=== PATIENT | female | born 1960 | race Caucasian/White ===

== ENCOUNTER 2018-06-12 14:18 | Emergency (ER) | payer OTHER ==
[2018-06-12 14:25] VITALS: BP 131/78; PULSE 66; TEMP 97.8; BMI 30.9
[2018-06-12] MEDS ORDERED: IBUPROFEN 600 MG TABLET (FP) PO ONE ×2 (14:26)
--- NOTE | 2018-06-12 14:42 | PDOC ---
History of Present Illness - General History Source: Patient Exam Limitations: No Limitations - History of Present Illness Initial Comments: 06/12/18 14:43 The patient is a 57 year old female, with a significant past medical history of HTN, who presents to the ED today complaining of RT thumb laceration, that she obtained 30 minutes prior to arriving.The patient reports she was standing on a folding chair when she fell backwards, and her first RT phalange and thumb were caught in between the chair. The patient denies any head strike/injury or loss of consciousness. Denies any neck pain. Denies any nausea or vomiting. Denies any numbness, tingling or loss of sensation. The patient denies chest pain, shortness of breath, headache and dizziness. Denies fever, chills, nausea, vomit, diarrhea and constipation. Denies dysuria, frequency, urgency and hematuria. Allergies: codeine, [penicillin] <Velasquez Sánchez - Last Filed: 06/12/18 14:42> - General History Source: Patient Exam Limitations: No Limitations <Serenity Rowley - Last Filed: 06/12/18 15:10> - General Chief Complaint: Pain Stated Complaint: R THUMB INJURY Time Seen by Provider: 06/12/18 14:25 Past History <Velasquez Sánchez - Last Filed: 06/12/18 14:42> - Past Medical History Anemia: No Asthma: No Cancer: No Cardiac Disorders: No CVA: No COPD: No CHF: No Dementia: No Diabetes: No GI Disorders: Yes (GERD, rectal bleeding) Disorders: No HTN: Yes Hypercholesterolemia: No Liver Disease: No Seizures: No Thyroid Disease: No - Surgical History Abdominal Surgery: No Appendectomy: No Cardiac Surgery: No Cholecystectomy: No Lung Surgery: No Neurologic Surgery: No Orthopedic Surgery: Yes (RIGHT KNEE ARTHROSCOPIC SURGERY) - Suicide/Smoking/Psychosocial Hx Smoking History: Never smoked Have you smoked in the past 12 months: No Number of Cigarettes Smoked Daily: 0 If you are a former smoker, when did you quit?: 18 YEARS AGO Information on smoking cessation initiated: No Hx Alcohol Use: Yes (Socially) Drug/Substance Use Hx: No Substance Use Type: Alcohol Hx Substance Use Treatment: No <Serenity Rowley - Last Filed: 06/12/18 15:10> - Past Medical History Allergies/Adverse Reactions: Allergies Allergy/AdvReac Type Severity Reaction Status Date / Time codeine [Codeine] Allergy Itching Verified 06/12/18 14:20 pencillin Allergy Severe Rash Uncoded 06/12/18 14:21 Home Medications: Ambulatory Orders Omeprazole Magnesium [Prilosec (OTC)] 20 mg PO DAILY 10/14/12 Cholecalciferol (Vitamin D3) [Vitamin D3] 1,000 unit PO DAILY capsule 05/31/15 Review of Systems - Review of Systems Comments:: 06/12/18 14:43 GENERAL/CONSTITUTIONAL: No fever or chills. No weakness. HEAD, EYES, EARS, NOSE AND THROAT: No change in vision. No ear pain or discharge. No sore throat. CARDIOVASCULAR: No chest pain or shortness of breath. RESPIRATORY: No cough, wheezing, or hemoptysis. GASTROINTESTINAL: No nausea, vomiting, diarrhea or constipation. GENITOURINARY: No dysuria, frequency, or change in urination. MUSCULOSKELETAL: +RT thumb laceration +RT first phalange pain. No joint or muscle swelling or pain. No neck or back pain. SKIN: No rash NEUROLOGIC: No headache, vertigo, loss of consciousness, or change in strength/ sensation. ENDOCRINE: No increased thirst. No abnormal weight change. HEMATOLOGIC/LYMPHATIC: No anemia, easy bleeding, or history of blood clots. ALLERGIC/IMMUNOLOGIC: No hives or skin allergy. <Velasquez Sánchez - Last Filed: 06/12/18 14:42> *Physical Exam - Vital Signs Last Vital Signs Temp Pulse Resp BP Pulse Ox 97.8 F 66 18 131/78 98 06/12/18 14:22 06/12/18 14:22 06/12/18 14:22 06/12/18 14:22 06/12/18 14:22 <Velasquez Sánchez - Last Filed: 06/12/18 14:42> - Vital Signs Last Vital Signs Temp Pulse Resp BP Pulse Ox 97.8 F 66 18 131/78 98 06/12/18 14:22 06/12/18 14:22 06/12/18 14:22 06/12/18 14:22 06/12/18 14:22 - Physical Exam Comments: 06/12/18 14:41 Alert no acute distress lungs are clear bilaterally is regular without any murmurs rubs or gallops right upper extremity exam shows thumb with tenderness at the IP joint pain on flexion no obvious deformity there is a subungual hematoma noted distally the patient is neurovascularly intact elbow and shoulder are nontender with full range of motion head atraumatic no midline spinal tenderness. <Serenity Rowley - Last Filed: 06/12/18 15:10> Moderate Sedation - Procedure Monitoring Vital Signs: Procedure Monitoring Vital Signs Temperature 97.8 F 06/12/18 14:22 Pulse Rate 66 06/12/18 14:22 Respiratory Rate 18 06/12/18 14:22 Blood Pressure 131/78 06/12/18 14:22 O2 Sat by Pulse Oximetry (%) 98 06/12/18 14:22 <Velasquez Sánchez - Last Filed: 06/12/18 14:42> - Procedure Monitoring Vital Signs: Procedure Monitoring Vital Signs Temperature 97.8 F 06/12/18 14:22 Pulse Rate 66 06/12/18 14:22 Respiratory Rate 18 06/12/18 14:22 Blood Pressure 131/78 06/12/18 14:22 O2 Sat by Pulse Oximetry (%) 98 06/12/18 14:22 <Serenity Rowley - Last Filed: 06/12/18 15:10> ED Treatment Course - Medications Given in the ED: ED Medications Discontinued Medications Generic Name Dose Route Start Last Admin Trade Name Freq PRN Reason Stop Dose Admin Ibuprofen 600 mg 06/12/18 14:26 06/12/18 14:32 Motrin - PO 06/12/18 14:27 600 mg ONCE ONE Administration <Velasquez áSnchez - Last Filed: 06/12/18 14:42> - RADIOLOGY Radiology Studies Ordered: Category Date Time Status FINGER(S) RIGHT [RAD] Stat Radiology 06/12/18 14:26 Ordered - Medications Given in the ED: ED Medications Discontinued Medications Generic Name Dose Route Start Last Admin Trade Name Freq PRN Reason Stop Dose Admin Ibuprofen 600 mg 06/12/18 14:26 06/12/18 14:32 Motrin - PO 06/12/18 14:27 600 mg ONCE ONE Administration <Serenity Rowley - Last Filed: 06/12/18 15:10> Medical Decision Making - Medical Decision Making 06/12/18 14:40 57-year-old female history of hypertension here status post fall from a chair. Happened 30 minutes prior to arrival complaining of right thumb pain. States her thumb got compression a falling chair that she was standing on pain is moderate did not take anything for it prior to arrival pain with moving her thumb no elbow or shoulder injury no LOC no new neck or back pain On exam the thumb is with pain at the IP joint there is a subungual hematoma noted Differential fracture versus contusion plan x-ray of the thumb pain control likely DC home with hand follow-up 06/12/18 15:07 xray with questionable avulsion fx proximal point of distal phalynx. placed in splint. given fu with dr parekh. <Serenity Rowley - Last Filed: 06/12/18 15:10> *DC/Admit/Observation/Transfer - Attestations Scribe Attestion: 06/12/18 14:44 Documentation prepared by Velasquez Sánchez, acting as mobile paramedical examiner for Serenity Rowley MD, MD <Velasquez Sánchez - Last Filed: 06/12/18 14:42> <Serenity Rowley - Last Filed: 06/12/18 15:10> Diagnosis at time of Disposition: Thumb injury, Subungual hematoma - Discharge Dispostion Disposition: HOME Condition at time of disposition: Improved - Referrals Referrals: Juan Parekh MD [Staff Physician] - - Patient Instructions Printed Discharge Instructions: Finger Fracture Additional Instructions: you can follow up with a hand specialist see referral information for dr. parekh. call to schedule. within one week. wear splint to help healing and provide comfort. you can take naproxen 500 mg up to twice daily for pain. you can also take tylenol 500 mg every 6 hrs as needed for pain. elevate to reduce swelling. return for any problems or concerns.
== END 2018-06-12 15:21 | disposition home or self-care (01) ==
LOC: FER 14:18
PROC: 2W3GX1Z Immobilization of Right Thumb using Splint (ICD-10-PCS; principal; 2018-06-12)
DX: S61.011A Laceration without foreign body of right thumb without damage to nail, initial encounter (principal); I10 Essential (primary) hypertension; K21.9 Gastro-esophageal reflux disease without esophagitis; Z87.891 Personal history of nicotine dependence; S69.91XA Unspecified injury of right wrist, hand and finger(s), initial encounter; W08.XXXA Fall from other furniture, initial encounter; Y93.89 Activity, other specified; Y92.89 Other specified places as the place of occurrence of the external cause; S60.111A Contusion of right thumb with damage to nail, initial encounter
CPT/HCPCS: 73140-TC-RT-FY; 99282-25